=== PATIENT | female | born 1970 | race Caucasian/White ===

== ENCOUNTER → 2020-07-28 | Outpatient (CLI) | payer BC ==
[~2020-07-28] MED LIST: HYDROCHLOROTHIA25 MG PO
== END ==
LOC: KOH-I 15:48
DX: M79.671 Pain in right foot (principal)
CPT/HCPCS: 73620

== ENCOUNTER 2020-09-12 10:53 | Emergency (ER) | payer BC ==
[2020-09-12 11:26] LABS: HEMOGLOBIN 14.1 gm/dl (12.3-15.3); RED BLOOD COUNT 4.05 M/UL (4.00-5.10); WHITE BLOOD COUNT 10.9 K/UL (4.5-11.0)
[2020-09-12 11:46] LABS: BUN/CREATININE RATIO 18 (0-10)
[2020-09-12] MEDS ORDERED: HYDROCHLOROTHIA25 MG PO (12:10)
== END 2020-09-12 12:30 | disposition home or self-care (01) ==
LOC: ER1 10:53
PROVIDERS: Physician Assistant
DX: I10 Essential (primary) hypertension (principal); R60.9 Edema, unspecified; E78.5 Hyperlipidemia, unspecified; F17.210 Nicotine dependence, cigarettes, uncomplicated; Z90.49 Acquired absence of other specified parts of digestive tract; Z88.0 Allergy status to penicillin; Z88.2 Allergy status to sulfonamides; Z88.1 Allergy status to other antibiotic agents
CPT/HCPCS: 71045; 80053; 81001; 82550; 82553; 83874; 84439; 84443; 84484; 84703; 85025; 93005; 99284